=== PATIENT | male | born 1990 | race Caucasian/White ===

== ENCOUNTER 2020-08-05 21:13 | Emergency (ER) | payer OTHER ==
[~2020-08-05] VITALS: Ht 180.3 cm; Wt 105.0 kg
[2020-08-05 21:34] VITALS: BP 129/69
[2020-08-06] MEDS ORDERED: METHOCARBAMOL 750 MG TABLET PO ONE (00:30)
[2020-08-06] MEDS ORDERED: KETOROLAC 60 MG/2 ML IM ONE (00:30)
[2020-08-06] MEDS ORDERED: PLEASE ENTER ALLERGIES MC SCH (00:30)
[2020-08-06] MEDS ORDERED: KETOROLAC 60 MG/2 ML ONE (00:32)
[2020-08-06] MEDS ORDERED: METHOCARBAMOL 750 MG TABLET ONE (00:32)
== END 2020-08-06 01:05 | disposition home or self-care (01) ==
LOC: ED 08-06 00:10
DX: S22.41XA Multiple fractures of ribs, right side, initial encounter for closed fracture (principal); F10.120 Alcohol abuse with intoxication, uncomplicated; Z72.9 Problem related to lifestyle, unspecified; F17.200 Nicotine dependence, unspecified, uncomplicated; W01.0XXA Fall on same level from slipping, tripping and stumbling without subsequent striking against object, initial encounter; Y93.89 Activity, other specified; Y92.410 Unspecified street and highway as the place of occurrence of the external cause; Y99.8 Other external cause status
CPT/HCPCS: 71101; 96372; 99283; J1885